=== PATIENT | female | born 1935 ===

== ENCOUNTER 2021-10-09 21:48 | Inpatient (IN) ==
[2021-10-09 22:50] LABS: Hematocrit 31 % (35-47); Hemoglobin 10.2 g/dL (12.0-16.0); Mean Corpuscular HGB Conc 33 g/dL (31-36); Mean Corpuscular Hemoglobin 30 pg (27-31); Mean Corpuscular Volume 90 fL (80-97); Mean Platelet Volume 6.8 fL (7.4-10.4); Platelet Count 333 10^3/uL (150-450); Red Cell Distribution Width 17 % (10-15); White Blood Count 6.5 10^3/uL (3.5-10.8)
[2021-10-09 23:05] LABS: ALT 13 U/L (7-52); AST 21 U/L (13-39); Albumin/Globulin Ratio 1.2 (1-3); Alkaline Phosphatase 60 U/L (35-149); Anion Gap 7 mmol/L (2-11); Blood Urea Nitrogen 25 mg/dL (6-24); CO2 Carbon Dioxide 27 mmol/L (22-32); Calcium 8.4 mg/dL (8.6-10.3); Chloride 101 mmol/L (101-111); Globulin 2.6 g/dL (2-4); Glucose 140 mg/dL (70-100); Sodium 135 mmol/L (135-145); Total Protein 5.6 g/dL (6.4-8.9); eGFR CKD-EPI 42.9 (>60)
[2021-10-09 23:09] LABS: Troponin I 0.12 ng/mL (<0.03)
[2021-10-09 23:23] LABS: ABS Eosinophils 0.1 10^3/ul (0-0.6); ABS Lymphocytes 0.2 10^3/ul (1.0-4.8); ABS Monocytes 0.4 10^3/ul (0-0.8); ABS Neutrophils 5.8 10^3/ul (1.5-7.7); Eosinophil % 1.1 %; Lymphocyte % 3.5 %
[2021-10-10] MEDS ORDERED: Bumetanide IV 0.25 MG/ML 4 ml VIAL (1 mg) SLOW PUSH ONE ×2 (00:51→09:00)
[2021-10-10] MEDS ORDERED: Dextrose 50% Syringe 50 ml 25 GM/50 ML SYRINGE IV PUSH PRN (00:54)
[2021-10-10 00:55] LABS: Anisocytosis 2+; Microcytosis 2+; Polychromasia 1+
[2021-10-10 01:02] LABS: Acanthocytes 1+
[2021-10-10] MEDS ORDERED: Polyethylene Glycol 3350 17 GM PACKET PO PRN (01:04)
[2021-10-10 02:31] LABS: Troponin I 0.27 ng/mL (<0.03)
[2021-10-10 05:21] LABS: Troponin I 0.31 ng/mL (<0.03)
[2021-10-10 09:03] LABS: Troponin I 0.32 ng/mL (<0.03)
[2021-10-10] MEDS: Heparin 5000 UNITS/ML 1 mL VIAL SUBCUT SCH ×2 (10:07→21:01)
[2021-10-10 12:36] LABS: Troponin I 0.24 ng/mL (<0.03)
[2021-10-10 13:24] LABS: TSH Ultra Thyroid Stim Horm 3.26 mcIU/mL (0.34-5.60)
[2021-10-11 06:27] LABS: ABS Eosinophils 0.2 10^3/ul (0-0.6); ABS Lymphocytes 0.2 10^3/ul (1.0-4.8); ABS Monocytes 0.4 10^3/ul (0-0.8); ABS Neutrophils 5.2 10^3/ul (1.5-7.7); Hematocrit 30 % (35-47); Hemoglobin 10.2 g/dL (12.0-16.0); Lymphocyte % 2.8 %; Mean Corpuscular HGB Conc 34 g/dL (31-36); Mean Corpuscular Hemoglobin 30 pg (27-31); Mean Corpuscular Volume 90 fL (80-97); Mean Platelet Volume 6.9 fL (7.4-10.4); Platelet Count 293 10^3/uL (150-450); Red Blood Count 3.39 10^6 /uL (3.70-4.87); Red Cell Distribution Width 17 % (10-15)
[2021-10-11 06:40] LABS: Calcium 8.1 mg/dL (8.6-10.3); Magnesium 2.2 mg/dL (1.9-2.7); Potassium 3.4 mmol/L (3.5-5.0); eGFR CKD-EPI 49.5 (>60)
[2021-10-11] MEDS ORDERED: Furosemide 40 mg/4 ml IV VIAL IV SLOW PU ONE (08:43)
[2021-10-11] MEDS: Heparin 5000 UNITS/ML 1 mL VIAL SUBCUT SCH ×2 (10:21→21:02)
[2021-10-12] MEDS: Heparin 5000 UNITS/ML 1 mL VIAL SUBCUT SCH (08:33)
[2021-10-12 08:47] LABS: ABS Eosinophils 0.2 10^3/ul (0-0.6); ABS Lymphocytes 0.3 10^3/ul (1.0-4.8); ABS Monocytes 0.4 10^3/ul (0-0.8); ABS Neutrophils 3.5 10^3/ul (1.5-7.7); Eosinophil % 4.9 %; Hematocrit 35 % (35-47); Hemoglobin 11.6 g/dL (12.0-16.0); Mean Corpuscular HGB Conc 33 g/dL (31-36); Mean Corpuscular Hemoglobin 30 pg (27-31); Mean Corpuscular Volume 89 fL (80-97); Mean Platelet Volume 6.5 fL (7.4-10.4); Nucleated Red Blood Cells % 0.1; Platelet Count 379 10^3/uL (150-450); Red Blood Count 3.91 10^6 /uL (3.70-4.87); Red Cell Distribution Width 17 % (10-15); White Blood Count 4.3 10^3/uL (3.5-10.8)
[2021-10-12 09:15] LABS: Calcium 8.7 mg/dL (8.6-10.3); Magnesium 2.1 mg/dL (1.9-2.7); Potassium 3.2 mmol/L (3.5-5.0)
[2021-10-12] MEDS ORDERED: Polyethylene Glycol 3350 17 GM PACKET PO PRN (11:29)
[2021-10-12] MEDS ORDERED: Magnesium Hydroxide LIQ 30 ML UDC PO PRN (11:29)
[2021-10-12 14:27] VITALS: BP 132/60
== END 2021-10-12 15:15 | disposition home or self-care (01) | DRG 291 ==
LOC: ED 21:48 → SUATTDRO 10-10 01:02 → EDHOLD 10-10 01:02 → MEDTELE 10-10 13:50
PROVIDERS: ADMIT Student in an Organized Health Care Education/Training Program; ATTEND Internal Medicine

== ENCOUNTER 2021-10-16 18:20 | Inpatient (IN) ==
[2021-10-16] MEDS ORDERED: Furosemide 40 mg/4 ml IV VIAL IV SLOW PU ONE (18:41)
[2021-10-16 19:38] LABS: ABS Eosinophils 0.1 10^3/ul (0-0.6); ABS Lymphocytes 0.5 10^3/ul (1.0-4.8); ABS Monocytes 0.4 10^3/ul (0-0.8); ABS Neutrophils 4.9 10^3/ul (1.5-7.7); Eosinophil % 2.5 %; Hematocrit 34 % (35-47); Hemoglobin 11.3 g/dL (12.0-16.0); Lymphocyte % 8.2 %; Mean Corpuscular HGB Conc 33 g/dL (31-36); Mean Corpuscular Hemoglobin 30 pg (27-31); Mean Corpuscular Volume 89 fL (80-97); Mean Platelet Volume 6.9 fL (7.4-10.4); Nucleated Red Blood Cells % 0.1; Platelet Count 466 10^3/uL (150-450); Red Blood Count 3.82 10^6 /uL (3.70-4.87); Red Cell Distribution Width 16 % (10-15); White Blood Count 5.9 10^3/uL (3.5-10.8)
[2021-10-16] MEDS ORDERED: nitroGLYCERIN DRIP 25,000 MCG/250 ML BTL IV ONE (19:41)
[2021-10-16 19:46] LABS: INR 1.14 (0.86-1.15)
[2021-10-16 19:53] LABS: ALT 29 U/L (7-52); AST 46 U/L (13-39); Albumin 3.2 g/dL (3.2-5.2); Albumin/Globulin Ratio 1.1 (1-3); Alkaline Phosphatase 66 U/L (35-149); Anion Gap 5 mmol/L (2-11); Blood Urea Nitrogen 19 mg/dL (6-24); C Reactive Protein 5.57 mg/L (<8.01); CO2 Carbon Dioxide 25 mmol/L (22-32); Calcium 8.8 mg/dL (8.6-10.3); Chloride 101 mmol/L (101-111); Globulin 2.8 g/dL (2-4); Glucose 208 mg/dL (70-100); Potassium 4.4 mmol/L (3.5-5.0); Sodium 131 mmol/L (135-145); eGFR CKD-EPI 53.6 (>60)
[2021-10-16 20:02] LABS: Troponin I 0.03 ng/mL (<0.03)
[2021-10-16 21:26] LABS: Magnesium 2.2 mg/dL (1.9-2.7); Phosphorus 3.5 mg/dL (2.5-5.0)
[2021-10-16 21:40] LABS: TSH Ultra Thyroid Stim Horm 4.23 mcIU/mL (0.34-5.60)
[2021-10-17] MEDS ORDERED: Polyethylene Glycol 3350 17 GM PACKET PO PRN (00:23)
[2021-10-17] MEDS ORDERED: nitroGLYCERIN DRIP 25,000 MCG/250 ML BTL IV ONE (00:23)
[2021-10-17 01:45] LABS: Urine Appearance Clear; Urine Bilirubin Negative (Negative); Urine Blood 1+ (Negative); Urine Color Straw; Urine Glucose Negative (Negative); Urine Ketones Negative (Negative); Urine Nitrite Negative (Negative); Urine Protein 2+(100 mg/dL) (Negative); Urine Specific Gravity 1.004 (1.002-1.030); Urine Urobilinogen Negative (Negative)
[2021-10-17 02:17] LABS: Urine Bacteria 1+ (Absent); Urine Red Blood Cell 2+(6-10/hpf) (Absent); Urine White Blood Cell 3+(>20/hpf) (Absent)
[2021-10-17] MEDS: Heparin 5000 UNITS/ML 1 mL VIAL SUBCUT SCH ×2 (08:19→20:47)
[2021-10-17] MEDS: cefTRIAXone 1 gm/50 mL NS BAG 1 GM/50 ML BAG IVPB SCH (13:05)
[2021-10-17] MEDS: CMCS: Pravastatin 20 mg TAB (NF) PO SCH (20:48)
[2021-10-18] MEDS: Heparin 5000 UNITS/ML 1 mL VIAL SUBCUT SCH ×2 (08:08→21:57)
[2021-10-18] MEDS ORDERED: Flu vaccine *QUAD* 2021-22* 0.5 ML SYRINGE IM ONE (09:00)
[2021-10-18] MEDS: cefTRIAXone 1 gm/50 mL NS BAG 1 GM/50 ML BAG IVPB SCH (15:03)
[2021-10-18] MEDS: CMCS: Pravastatin 20 mg TAB (NF) PO SCH (21:58)
[2021-10-19] MEDS: Heparin 5000 UNITS/ML 1 mL VIAL SUBCUT SCH (07:49)
[2021-10-19] MEDS: cefTRIAXone 1 gm/50 mL NS BAG 1 GM/50 ML BAG IVPB SCH (15:13)
[2021-10-19] MEDS: Enoxaparin 40 MG/0.4 ML SYR SUBCUT SCH (19:53)
[2021-10-19] MEDS: CMCS: Pravastatin 20 mg TAB (NF) PO SCH (19:57)
[2021-10-20] MEDS: Senna TAB 8.6 mg TAB PO SCH (07:49)
[2021-10-20] MEDS: CMCS: Pravastatin 20 mg TAB (NF) PO SCH (21:25)
[2021-10-20] MEDS: Enoxaparin 40 MG/0.4 ML SYR SUBCUT SCH (21:26)
[2021-10-21] MEDS: Senna TAB 8.6 mg TAB PO SCH (08:03)
[2021-10-21] MEDS: Enoxaparin 40 MG/0.4 ML SYR SUBCUT SCH (19:53)
[2021-10-21] MEDS: CMCS: Pravastatin 20 mg TAB (NF) PO SCH (19:57)
[2021-10-22 07:27] LABS: ABS Eosinophils 0.2 10^3/ul (0-0.6); ABS Lymphocytes 0.4 10^3/ul (1.0-4.8); ABS Monocytes 0.3 10^3/ul (0-0.8); ABS Neutrophils 2.5 10^3/ul (1.5-7.7); Eosinophil % 5.6 %; Hematocrit 33 % (35-47); Hemoglobin 10.9 g/dL (12.0-16.0); Lymphocyte % 12.6 %; Mean Corpuscular HGB Conc 34 g/dL (31-36); Mean Corpuscular Hemoglobin 30 pg (27-31); Mean Corpuscular Volume 88 fL (80-97); Mean Platelet Volume 7.1 fL (7.4-10.4); Platelet Count 341 10^3/uL (150-450); Red Cell Distribution Width 15 % (10-15); White Blood Count 3.5 10^3/uL (3.5-10.8)
[2021-10-22 07:36] LABS: Calcium 8.4 mg/dL (8.6-10.3); Potassium 3.5 mmol/L (3.5-5.0); eGFR CKD-EPI 59.1 (>60)
[2021-10-22] MEDS: CMCS: Pravastatin 20 mg TAB (NF) PO SCH (21:06)
[2021-10-22] MEDS: Enoxaparin 40 MG/0.4 ML SYR SUBCUT SCH (21:07)
[2021-10-23] MEDS: Enoxaparin 40 MG/0.4 ML SYR SUBCUT SCH (22:22)
[2021-10-23] MEDS: CMCS: Pravastatin 20 mg TAB (NF) PO SCH (22:29)
[2021-10-24] MEDS: Enoxaparin 40 MG/0.4 ML SYR SUBCUT SCH (20:44)
[2021-10-24] MEDS: CMCS: Pravastatin 20 mg TAB (NF) PO SCH (20:45)
[2021-10-25] MEDS: Enoxaparin 40 MG/0.4 ML SYR SUBCUT SCH (20:26)
[2021-10-25] MEDS: CMCS: Pravastatin 20 mg TAB (NF) PO SCH (20:27)
[2021-10-26 11:14] LABS: Rapid COVID-19 Molecular Undetected (Undetected)
[2021-10-26 11:39] VITALS: BP 127/38
== END 2021-10-26 12:50 | DRG 189 ==
LOC: ED 18:20 → ICU 18:27 → EDHOLD 20:35 → SUATTDRO 20:35 → ICU 10-17 00:27 → MED 10-18 16:34
PROVIDERS: ADMIT Hospitalist; ATTEND Student in an Organized Health Care Education/Training Program

== ENCOUNTER 2022-05-06 16:16 | Observation (INO) ==
[2022-05-06] MEDS ORDERED: Lactated Ringers 1000 ml BAG 1,000 ML IV ONE (16:59)
[2022-05-06 17:21] LABS: ABS Eosinophils 0.2 10^3/ul (0-0.6); ABS Lymphocytes 0.4 10^3/ul (1.0-4.8); ABS Monocytes 0.5 10^3/ul (0-0.8); ABS Neutrophils 7.7 10^3/ul (1.5-7.7); Eosinophil % 1.9 %; Hematocrit 35 % (35-47); Hemoglobin 11.5 g/dL (12.0-16.0); Lymphocyte % 4.3 %; Mean Corpuscular HGB Conc 33 g/dL (31-36); Mean Corpuscular Hemoglobin 29 pg (27-31); Mean Corpuscular Volume 88 fL (80-97); Mean Platelet Volume 5.8 fL (7.4-10.4); Platelet Count 502 10^3/uL (150-450); Red Blood Count 4.01 10^6 /uL (3.70-4.87); Red Cell Distribution Width 14 % (10-15); White Blood Count 8.8 10^3/uL (3.5-10.8)
[2022-05-06 17:32] LABS: INR 1.19 (0.86-1.15)
[2022-05-06 17:55] LABS: Albumin 3.2 g/dL (3.2-5.2); Albumin/Globulin Ratio 1.1 (1-3); C Reactive Protein 49.1 mg/L (<8.01); Calcium 8.9 mg/dL (8.6-10.3); Total Bilirubin 0.4 mg/dL (0.2-1.0); Total Protein 6.2 g/dL (6.4-8.9)
[2022-05-06] MEDS ORDERED: Iohexol 350 (CONTRAST) 500 ML MDV IV ONE (18:23)
[2022-05-06] MEDS ORDERED: cefTRIAXone 2 gm/50 mL D5W 2 GM/50 ML BAG IV ONE (18:59)
[2022-05-06] MEDS ORDERED: Lidocaine 2% JELLY 6 ML Topical TOPICAL ONE (20:54)
[2022-05-06 22:46] LABS: TSH Ultra Thyroid Stim Horm 2.09 mcIU/mL (0.34-5.60)
[2022-05-06] MEDS ORDERED: Enoxaparin 40 MG/0.4 ML SYR SUBCUT SCH (23:00)
[2022-05-06] MEDS ORDERED: Senna TAB 8.6 mg TAB PO PRN (23:41)
[2022-05-06] MEDS ORDERED: Polyethylene Glycol 3350 17 GM PACKET PO PRN (23:41)
[2022-05-07 05:50] LABS: ABS Eosinophils 0.2 10^3/ul (0-0.6); ABS Lymphocytes 0.3 10^3/ul (1.0-4.8); ABS Monocytes 0.4 10^3/ul (0-0.8); ABS Neutrophils 5.8 10^3/ul (1.5-7.7); Eosinophil % 2.6 %; Hematocrit 35 % (35-47); Hemoglobin 11.4 g/dL (12.0-16.0); Lymphocyte % 4.2 %; Mean Corpuscular HGB Conc 33 g/dL (31-36); Mean Corpuscular Hemoglobin 29 pg (27-31); Mean Corpuscular Volume 87 fL (80-97); Mean Platelet Volume 6.1 fL (7.4-10.4); Platelet Count 481 10^3/uL (150-450); Red Blood Count 3.97 10^6 /uL (3.70-4.87); Red Cell Distribution Width 14 % (10-15); White Blood Count 6.8 10^3/uL (3.5-10.8)
[2022-05-07 06:01] LABS: INR 1.25 (0.86-1.15)
[2022-05-07 06:27] LABS: Anion Gap 5 mmol/L (2-11); Blood Urea Nitrogen 22 mg/dL (6-24); CO2 Carbon Dioxide 25 mmol/L (22-32); Calcium 8.5 mg/dL (8.6-10.3); Chloride 104 mmol/L (101-111); Glucose 145 mg/dL (70-100); Potassium 4.9 mmol/L (3.5-5.0); Sodium 134 mmol/L (135-145); eGFR CKD-EPI 61.4 (>60)
[2022-05-07] MEDS ORDERED: NFT: Estradiol VAG CM (NF) 1 APPLIC TUBE VAGINAL SCH (09:00)
[2022-05-07 09:13] LABS: Total Iron Binding Capacity 262 mcg/dL (250-450); Transferrin 187 mg/dL (203-362)
[2022-05-07 09:16] LABS: % Iron Saturation 8 % (15-55); Iron < 20 ug/dL (50-212); Unsaturated Iron Binding 242 ug/dL
[2022-05-07 09:32] LABS: Ferritin 57.4 ng/mL (11-307)
[2022-05-07] MEDS ORDERED: Iron Sucrose 200 MG in NS 0.9% 100 ml BAG 100 ML IVPB SCH (10:00)
[2022-05-07 11:51] VITALS: BP 111/47
[2022-05-07] MEDS ORDERED: Morphine ORAL CONCENTRATE 5 MG/0.25 ML ORAL.SYRIN PO PRN (12:50)
[2022-05-07] MEDS ORDERED: Ondansetron ODT 4 mg TAB 4 MG TAB SL PRN (12:50)
[2022-05-07] MEDS ORDERED: TRIAMCINOLONE 0.1% TOPICAL SCH (14:00)
[2022-05-07] MEDS ORDERED: Senna TAB 8.6 mg TAB PO SCH (21:00)
[2022-05-07] MEDS ORDERED: Enoxaparin 40 MG/0.4 ML SYR SUBCUT SCH (23:00)
[2022-05-08] MEDS ORDERED: Polyethylene Glycol 3350 17 GM PACKET PO SCH (09:00)
== END 2022-05-07 14:55 | disposition hospice, home (50) ==
LOC: ED 16:16 → EDHOLD 16:16 → SUATTDRO 22:10 → MED 05-07 00:01
PROVIDERS: ADMIT Student in an Organized Health Care Education/Training Program; ATTEND Internal Medicine